=== PATIENT | female | born 1950 | race Caucasian/White ===

== ENCOUNTER → 2017-10-28 14:48 | Outpatient (CLI) | payer MEDICARE, BC, SELFPAY ==
--- NOTE | 2017-10-28 14:51 | US_ITS ---
STUDY: ULTRASOUND TRANSVAGINAL CLINICAL: Female, 67 years old. Follow-up of right adnexal cyst TECHNIQUE: Transabdominal and Transvaginal COMPARISON: None. FINDINGS: Status post hysterectomy Status post bilateral oophorectomy. There is a right adnexal cyst identified on the transvaginal exam measuring 1.3 x 1.2 x 1.9 cm. There is no free fluid in the pelvis. US/Pelvic (Non ) IMPRESSION: Status post hysterectomy and bilateral nephrectomy. Stable appearance of right adnexal cyst Electronically Signed: Chuck Mahoney DO at 9:13 EST Tel , Service support ,
--- NOTE | 2017-10-28 15:13 | US_ITS ---
STUDY: ULTRASOUND TRANSVAGINAL CLINICAL: Female, 67 years old. Follow-up of right adnexal cyst TECHNIQUE: Transabdominal and Transvaginal COMPARISON: None. FINDINGS: Status post hysterectomy Status post bilateral oophorectomy. There is a right adnexal cyst identified on the transvaginal exam measuring 1.3 x 1.2 x 1.9 cm. There is no free fluid in the pelvis. US/Transvaginal Non- IMPRESSION: Status post hysterectomy and bilateral nephrectomy. Stable appearance of right adnexal cyst Electronically Signed: Chuck Mahoney DO at 9:13 EST Tel , Service support ,
== END ==
PROVIDERS: Family Provider Family Medicine; PCP Family Medicine; Visit Provider Obstetrics & Gynecology
DX: N83.8 Other noninflammatory disorders of ovary, fallopian tube and broad ligament (principal)
CPT/HCPCS: 76830; 76856

== ENCOUNTER → 2017-11-09 14:27 | Outpatient (CLI) | payer MEDICARE, BC, SELFPAY ==
[2017-11-09 16:29] LABS: Estradiol < 11.0 pg/mL; Follicle Stimulating Hormone 80.2 mIU/mL
[2017-11-11 11:57] LABS: Cancer Antigen 125 8.3 U/mL (0.0-38.1); Carbohydrate AG 19-9 25 U/mL (0-35); Carcinoembryonic Antigen 2.1 ng/mL (0.0-4.7)
== END ==
PROVIDERS: Visit Provider Obstetrics & Gynecology
DX: N83.201 Unspecified ovarian cyst, right side (principal); R93.5 Abnormal findings on diagnostic imaging of other abdominal regions, including retroperitoneum
CPT/HCPCS: 36415; 82378; 82670; 83001; 86301; 86304

== ENCOUNTER → 2018-02-24 16:00 | Outpatient (CLI) | payer MEDICARE, BC, SELFPAY ==
--- NOTE | 2018-02-24 16:05 | BI_ITS ---
MAMMOGRAPHY - BILATERAL SCREENING REASON FOR EXAM: Female, 67 years old. Routine annual screening examination. PERTINENT HISTORY: History of prior bilateral breast reduction and right excisional breast biopsy. TECHNIQUE: Digital bilateral breast lupillo (3D mammographic acquisition) in the CC and MLO projections. 2-D mediolateral oblique (MLO) and craniocaudad (CC) views of both breasts were obtained. CAD: Full Field Digital Mammography with Computer Added Detection was performed. COMPARISON: Comparison is made with prior examination and February 05, 2017. FINDINGS: Breast Composition: The breasts are heterogeneously dense, which may obscure small masses. There are no dominant masses or suspicious calcifications. No other significant abnormalities are identified. There has been no significant change since the prior study. BI/SCREENING MAMM (CAD), BILAT IMPRESSION: Stable bilateral screening mammogram. Yearly follow-up mammogram recommended. (A) ASSESSMENT CATEGORY: BIRADS Category 1: Negative. A letter regarding these results will be sent to the patient by the facility within 30 days. Approximately 10% of breast cancers are not detected by mammography. A normal mammogram should not delay biopsy of a clinically suspicious abnormality. [id number] Electronically Signed: Jesse Quezada MD at 14:57 EDT Tel [phone], Service support ,
== END ==
PROVIDERS: Family Provider Family Medicine; PCP Family Medicine; Visit Provider Obstetrics & Gynecology
DX: Z12.31 Encounter for screening mammogram for malignant neoplasm of breast (principal)
CPT/HCPCS: 77063; 77067

== ENCOUNTER → 2018-03-10 15:34 | Outpatient (CLI) | payer MEDICARE, BC, SELFPAY ==
--- NOTE | 2018-03-10 15:35 | US_ITS ---
STUDY: ULTRASOUND OF THE FEMALE PELVIS - COMPLETE REASON FOR EXAM: Female, 67 years old. Right adnexal cyst LMP: TECHNIQUE: Transabdominal and Transvaginal TECHNICAL QUALITY: Adequate. COMPARISON: None. FINDINGS: The uterus uterus and the ovaries have been removed. There is no abnormal mass in the pelvis. There is no evidence of right adnexal cyst. There is no fluid in the cul-de-sac. The pre void volume of the bladder was 479.8 ml. US/Pelvic (Non ) IMPRESSION: Normal female pelvis. Electronically Signed: Yvonne Ríos MD at 8:04 EDT Tel , Service support ,
== END ==
PROVIDERS: Family Provider Family Medicine; PCP Family Medicine; Visit Provider Obstetrics & Gynecology
DX: N83.8 Other noninflammatory disorders of ovary, fallopian tube and broad ligament (principal); R10.30 Lower abdominal pain, unspecified
CPT/HCPCS: 76856

== ENCOUNTER → 2018-08-16 12:43 | Outpatient (CLI) | payer MEDICARE, BC, SELFPAY ==
--- NOTE | 2018-08-16 12:46 | US_ITS ---
STUDY: ULTRASOUND OF THE FEMALE PELVIS - COMPLETE REASON FOR EXAM: Female, 68 years old. Right adnexal cyst. LMP: Postmenopausal. TECHNIQUE: Transabdominal and Transvaginal TECHNICAL QUALITY: Adequate. COMPARISON: March 10, 2018 and October 28, 2017. FINDINGS: The uterus is surgically absent. The right ovary is visualized. The right ovary measures 1.5 x 1.8 x 1.2 cm. This contains a 1.1 x 1.0 x 1.0 cm cyst. There is no visualized right adnexal mass or complex lesion. There is normal arterial and normal venous vascularity. The left ovary is not visualized. There is no visualized left adnexal mass or complex lesion. There is no fluid in the cul-de-sac. The pre void volume of the bladder was 288 ml. The urinary bladder appears grossly unremarkable. Polycystic ovary disease: No. US/Pelvic (Non ) IMPRESSION: 1. Surgically absent uterus. 2. Soft tissue density with associated cyst in right adnexa. Question right ovary with cyst. This was not seen on the most recent ultrasound but appears essentially unchanged from October 28, 2017. 3. Nonvisualization left ovary. 4. No other sonographic evidence of pelvic abnormality. Electronically Signed: Missael Lopez DO at 22:14 EST Tel [phone], Service support ,
--- OUTSIDE RECORDS SUMMARY | 2018-10-09 19:21 | XMS RPT_ITS ---
:1950 Author Organization [facility] Care Team Providers Name Role Phone Katt Carrion Attending Unavailable Katt Carrion Referring Unavailable CHON PORTILLO Primary Care Unavailable Katt Carrion Attending Unavailable Katt Carrion Attending Unavailable CHON PORTILLO Primary Care Unavailable GRICELDA GRAFF Unavailable Katt Carrion Referring Unavailable Katt Carrion Attending Unavailable Katt Carrion Referring Unavailable CHON PORTILLO Primary Care Unavailable Katt Carrion Attending Unavailable Katt Carrion Referring Unavailable LINDSEY CHON Primary Care Unavailable PROBLEMS PROBLEMS DATE TYPE CONDITION / CODE ATTENDING STATUS SOURCE 08/16/2018 Unknown N83.8 - Other Katt Carrion Active [facility] noninflammatory Community disorders of ovary, Hospital fallopian tube and Repository broad ligament / N83.8(ICD-10) 03/10/2018 Unknown R10.30 - Lower Katt Carrion Active [facility] abdominal pain, Community unspecified / Hospital R10.30(ICD-10) Repository 02/24/2018 Unknown Z12.31 - Encounter Katt Carrionoster for screening Community mammogram for Hospital malignant neoplasm of Repository breast / Z12.31(ICD-10) 12/03/2017 Unknown N83.201 - Unspecified Katt Carrion Active [facility] ovarian cyst, right Community side / Hospital N83.201(ICD-10) Repository PROCEDURES PROCEDURES No Procedure Records FoundRESULTS RESULTS PELVIC (NON ) Observed: 08/16/2018 Status: F Source: MICHAEL 12:47 PM [facility] REPOSITORY [facility] [address] [place] [address] Pelvic (Non ) MR#: [id number] Acct: [id number] Name: JORDY FOLEY Rep #: [id number] : 1950 F 68 From: Missael Lopez DO PCP: Chon Portillo MD Status: REG CLI Study: Pelvic (Non ) Date of Exam: 08/16/18 Exam# [id number] Ordering Dr: Katt Carrion MD STUDY: ULTRASOUND OF THE FEMALE PELVIS - COMPLETE REASON FOR EXAM: Female, 68 years old. Right adnexal cyst. LMP: Postmenopausal. TECHNIQUE: Transabdominal and Transvaginal TECHNICAL QUALITY: Adequate. COMPARISON: March 10, 2018 and October 28, 2017. FINDINGS: The uterus is surgically absent. The right ovary is visualized. The right ovary measures 1.5 x 1.8 x 1.2 cm. This contains a 1.1 x 1.0 x 1.0 cm cyst. There is no visualized right adnexal mass or complex lesion. There is normal arterial and normal venous vascularity. The left ovary is not visualized. There is no visualized left adnexal mass or complex lesion. There is no fluid in the cul-de-sac. The pre void volume of the bladder was 288 ml. The urinary bladder appears grossly unremarkable. Polycystic ovary disease: No. US/Pelvic (Non ) IMPRESSION: 1. Surgically absent uterus. 2. Soft tissue density with associated cyst in right adnexa. Question right ovary with cyst. This was not seen on the most recent ultrasound but appears essentially unchanged from October 28, 2017. 3. Nonvisualization left ovary. 4. No other sonographic evidence of pelvic abnormality. Electronically Signed: Missael Lopez DO at 22:14 EST Tel [phone], Service support , CC: Katt Carrion MD; Chon Portillo MD Laborer Drying Department: Signed PELVIC (NON ) Observed: 03/10/2018 Status: F Source: MICHAEL 3:36 PM [facility] REPOSITORY [facility] [address] [place] [address] Pelvic (Non ) MR#: [id number] Acct: [id number] Name: JORDY FOLEY Rep #: [id number] : 1950 F 67 From: Yvonne Ríos MD PCP: Chon Portillo MD Status: REG CLI Study: Pelvic (Non ) Date of Exam: 03/10/18 Exam# [id number] Ordering Dr: Katt Carrion MD STUDY: ULTRASOUND OF THE FEMALE PELVIS - COMPLETE REASON FOR EXAM: Female, 67 years old. Right adnexal cyst LMP: TECHNIQUE: Transabdominal and Transvaginal TECHNICAL QUALITY: Adequate. COMPARISON: None. FINDINGS: The uterus uterus and the ovaries have been removed. There is no abnormal mass in the pelvis. There is no evidence of right adnexal cyst. There is no fluid in the cul-de-sac. The pre void volume of the bladder was 479.8 ml. US/Pelvic (Non ) IMPRESSION: Normal female pelvis. Electronically Signed: Yvonne Ríos MD at 8:04 EDT Tel , Service support , CC: Katt Carrion MD; Chon Portillo MD Laborer Drying Department: Signed SCREENING MAMM (CAD), Observed: 02/24/2018 Status: F Source: MICHAEL BILKAR 4:05 PM [facility] REPOSITORY [facility] [address] [place] [address] SCREENING MAMM (CAD), BILAT MR#: [id number] Acct: [id number] Name: JORDY FOLEY Rep #: [id number] : 1950 F 67 From: Jesse Quezada MD PCP: Chon Portillo MD Status: REG CLI Study: SCREENING MAMM (CAD), BILAT Date of Exam: 02/24/18 Exam# [id number] Ordering Dr: Katt Carrion MD MAMMOGRAPHY - BILATERAL SCREENING REASON FOR EXAM: Female, 67 years old. Routine annual screening examination. PERTINENT HISTORY: History of prior bilateral breast reduction and right excisional breast biopsy. TECHNIQUE: Digital bilateral breast lupillo (3D mammographic acquisition) in the CC and MLO projections. 2-D mediolateral oblique (MLO) and craniocaudad (CC) views of both breasts were obtained. CAD: Full Field Digital Mammography with Computer Added Detection was performed. COMPARISON: Comparison is made with prior examination and February 05, 2017. FINDINGS: Breast Composition: The breasts are heterogeneously dense, which may obscure small masses. There are no dominant masses or suspicious calcifications. No other significant abnormalities are identified. There has been no significant change since the prior study. BI/SCREENING MAMM (CAD), BILAT IMPRESSION: Stable bilateral screening mammogram. Yearly follow-up mammogram recommended. (A) ASSESSMENT CATEGORY: BIRADS Category 1: Negative. A letter regarding these results will be sent to the patient by the facility within 30 days. Approximately 10% of breast cancers are not detected by mammography. A normal mammogram should not delay biopsy of a clinically suspicious abnormality. [id number] Electronically Signed: Jesse Quezada MD at 14:57 EDT Tel [phone], Service support , CC: Katt Carrion MD; Chon Portillo MD Laborer Drying Department: Signed FOLLICLE STIMULATING Collected: 11/09/2017 Status: F Source: MICHAEL HORMONE 2:31 PM [facility] REPOSITORY TYPE CODE TESTS RESULT OUT OF RANGE REFERENCE UNITS LAB L3100.5125 mIU/mL Normal FSH 80.2 Result Comment: NORMAL REFERENCE RANGES FEMALE FOLLICULAR 2.3 - 12.6 mIU/mL MID-CYCLE PEAK 5.2 - 17.5 mIU/mL LUTEAL 1.7 - 12.9 mIU/mL POST-MENOPAUSAL ON MHT 5.9 - 72.8 mIU/mL NOT ON MHT 12.7 - 132.2 mlU/mL MALE 0.7 - 10.8 mIU/mL NEW TEST METHOD AND REFERENCE RANGES FEBRUARY 02, 2012 Performed By: #### L3100.5125, L3300.1750 #### [facility] [address] [place], [address] ESTRADIOL Collected: 11/09/2017 Status: F Source: MICHAEL 2:31 PM [facility] REPOSITORY TYPE CODE TESTS RESULT OUT OF RANGE REFERENCE UNITS LAB L3300.1750 pg/mL Normal ESTRADIOL < 11.0 Result Comment: NORMAL REFERENCE RANGES FEMALE FOLLICULAR 21.4 - 164.8 pg/mL MID-CYCLE PEAK 49.9 - 367.2 pg/mL LUTEAL 40.2 - 259.0 pg/mL POST-MENOPAUSAL ON MHT <11.0 - 462.1 pg/mL NOT ON MHT <11.0 - 58.3 pg/mL MALE <11.0 - 52.5 pg/mL NOTE: [facility] HAS CONFIRMED THE DRUG FULVETRANT (FASLODEX) MAY CAUSE FALSELY ELEVATED ESTRADIOL RESULTS WHEN USING THIS TEST METHOD. IF PATIENT IS TAKING FULVESTRANT AN ALTERNATIVE METHOD SHOULD BE USED TO DETERMINE ESTRADIOL CONCENTRATION. Performed By: #### L3100.5125, L3300.1750 #### [facility] [address] [place], [address] CARCINOEMBRYONIC ANTIGEN Collected: 11/09/2017 Status: F Source: MICHAEL 2:31 PM [facility] REPOSITORY TYPE CODE TESTS RESULT OUT OF RANGE REFERENCE UNITS LAB L3100.2300 0.0-4.7 ng/mL Normal CEA 2.1 Result Comment: Won ECLIA methodology Nonsmokers <3.9 Smokers <5.6 Performed By: #### L3100.2300, L3100.5000, L3100.5020 #### [facility] (refer to report for specific site) refer to report for address and phone number CANCER ANTIGEN 125 Collected: 11/09/2017 Status: F Source: MICHAEL 2:31 PM [facility] REPOSITORY TYPE CODE TESTS RESULT OUT OF RANGE REFERENCE UNITS LAB L3100.5000 0.0-38.1 U/mL Normal CA125 8.3 2303 Result Comment: Won ECLIA methodology Performed at: [address] [id number] Mortgage Closing Clerk: Arnold Vines PhD, Phone: [phone] Performed By: #### L3100.2300, L3100.5000, L3100.5020 #### [facility] (refer to report for specific site) refer to report for address and phone number CARBOHYDRATE AG 19-9 Collected: 11/09/2017 Status: F Source: MICHAEL 2:31 PM [facility] REPOSITORY TYPE CODE TESTS RESULT OUT OF RANGE REFERENCE UNITS LAB L3100.5020 0-35 U/mL Normal CA 19-9 25 2261 Result Comment: Won ECLIA methodology Performed By: #### L3100.2300, L3100.5000, L3100.5020 #### [facility] (refer to report for specific site) refer to report for address and phone number MISCELLANEOUS LAB Collected: 11/09/2017 Status: F Source: MICHAEL PROCEDURE 2:31 PM [facility] REPOSITORY Order Comment: Comments: #[id number] INHIBIN A SERUM FZ;#[id number] INHIBIN B SERUM RF Test(s) Ordered: #[id number] INHIBIN A SERUM FZ TYPE CODE TESTS RESULT OUT OF RANGE REFERENCE UNITS LAB L801.1541 Normal [facility] TEST Result Comment: TEST RESULT LIMITS Inhibin A, Ultrasensitive < 0.3 pg/mL Menstrual Phase Early Follicular <34.0 Late Follicular <99.0 Periovulatory 8.0-233.0 MidLuteal <145.0 End Luteal <145.0 Postmenopausal <4.0 [facility] ORIGINAL REPORT ON FILE IN LAB CONTAINS ADDITIONAL TEST SITE INFORMATION. Performed By: #### L801.1541 #### [facility] [address] [place], [address] MISCELLANEOUS LAB Collected: 11/09/2017 Status: F Source: MICHAEL PROCEDURE 2 2:31 PM [facility] REPOSITORY Order Comment: Comments: #[id number] INHIBIN A SERUM FZ;#[id number] INHIBIN B SERUM RF List Test(s) Ordered by Physician: #[id number] INHIBIN B SERUM RF TYPE CODE TESTS RESULT OUT OF RANGE REFERENCE UNITS LAB L801.1543 Normal [facility] TEST 2 Result Comment: TEST RESULT LIMITS Inhibin B <7.0 pg/mL 0.0 - 16.9 Results for this test are for research purposes only by the assay's fishing boat mate. The performance characteristics of this product have not been established. Results should not be used as a diagnostic procedure without confirmation of the diagnosis by another medically established diagnostic product or procedure. [facility] ORIGINAL REPORT ON FILE IN LAB CONTAINS ADDITIONAL TEST SITE INFORMATION. Performed By: #### L801.1543 #### [facility] [address] [place], [address] TRANSVAGINAL Observed: 10/28/2017 Status: F Source: MICHAEL NON- 3:13 PM [facility] REPOSITORY [facility] [address] [address] Transvaginal Non- MR#: [id number] Acct: [id number] Name: JORDY FOLEY Rep #: [id number] : 1950 F 67 From: Chuck Mahoney DO PCP: CHON PORTILLO Status: REG CLI Study: Transvaginal Non- Date of Exam: 10/28/17 Exam# [id number] Ordering Dr: Katt Carrion MD ADDENDUM by Chuck Mahoney D.O. on 11/10/17 at 1511 US/Transvaginal Non- IMPRESSION: Status post hysterectomy and bilateral oophorectomy. Stable appearance of right adnexal cyst Electronically Signed: Chuck Mahoney DO at 15:11 EST Tel , Service support , 11/10/171517 Date cc: Katt Carrion MD; CHON PORTILLO * Signed ADDENDUM by Chuck Mahoney D.O. on 11/10/17 at 1511 ADDENDUM Please note that there was a dictation error Impression should read as follows 02/27/18 1511 Date cc: Katt Carrion MD; CHON PORTILLO * Signed STUDY: ULTRASOUND TRANSVAGINAL CLINICAL: Female, 67 years old. Follow-up of right adnexal cyst TECHNIQUE: Transabdominal and Transvaginal COMPARISON: None. FINDINGS: Status post hysterectomy Status post bilateral oophorectomy. There is a right adnexal cyst identified on the transvaginal exam measuring 1.3 x 1.2 x 1.9 cm. There is no free fluid in the pelvis. US/Transvaginal Non- IMPRESSION: Status post hysterectomy and bilateral nephrectomy. Stable appearance of right adnexal cyst Electronically Signed: Chuck Mahoney DO at 9:13 EST Tel , Service support , CC: Katt Carrion MD; CHON PORTILLO Laborer Drying Department: Signed PELVIC (NON ) Observed: 10/28/2017 Status: F Source: [place] 2:51 PM [facility] REPOSITORY [facility] [address] [place] [address] Pelvic (Non ) MR#: [id number] Acct: [id number] Name: JORDY FOLEY Nav Rep #: [id number] : 1950 F 67 From: Chuck Mahoney DO PCP: CHON PORTILLO Status: REG CLI Study: Pelvic (Non ) Date of Exam: 10/28/17 Exam# [id number] Ordering Dr: Katt Carrion MD ADDENDUM by Chuck Mahoney D.O. on 11/10/17 at 1511 US/Pelvic (Non ) IMPRESSION: Status post hysterectomy and bilateral oophorectomy. Stable appearance of right adnexal cyst Electronically Signed: Chuck Mahoney DO at 15:11 EST Tel , Service support , 11/10/171517 Date cc: Katt Carrion MD; CHON PORTILLO * Signed ADDENDUM by Chuck Mahoney D.O. on 11/10/17 at 1511 ADDENDUM Please note that there was a dictation error Impression should read as follows 11/10/171510 Date cc: Katt Carrion MD; CHON PORTILLO * Signed STUDY: ULTRASOUND TRANSVAGINAL CLINICAL: Female, 67 years old. Follow-up of right adnexal cyst TECHNIQUE: Transabdominal and Transvaginal COMPARISON: None. FINDINGS: Status post hysterectomy Status post bilateral oophorectomy. There is a right adnexal cyst identified on the transvaginal exam measuring 1.3 x 1.2 x 1.9 cm. There is no free fluid in the pelvis. US/Pelvic (Non ) IMPRESSION: Status post hysterectomy and bilateral nephrectomy. Stable appearance of right adnexal cyst Electronically Signed: Chuck Mahoney DO at 9:13 EST Tel , Service support , CC: Katt Carrion MD; CHON PORTILLO Laborer Drying Department: Signed ALLERGIES ALLERGIES No Allergies Records FoundENCOUNTERS ENCOUNTERS ADMIT/DISCHARGE ACCOUNT ADMITTING ENCOUNTER LOCATION SOURCE NUMBER CLASS 08/16/2018 [id number] Ambulatory [place] 0 [facility] ing:OPUS Repository 03/10/2018 [id number] Ambulatory [place] Michael 9 [facility] ing:US Repository 02/24/2018 [id number] Ambulatory [place] 8 [facility] ing:OPBI Repository 11/09/2017 [id number] Ambulatory [place] 8 [facility] ing:WOBLAB Repository 10/28/2017 [id number] Ambulatory [place] 5 [facility] ing:USHP Repository PAYERS PAYERS ENCOUNTER GUARANTOR PAYER SUBSCRIBER SOURCE 08/16/2018 BERNABE Chopra Primary JORDY L [place] [id number] Insurance:MEDICARE KANDLEDOB: [facility] PART A [facility] [id number] Hospital [address], Number: Repository [place] [address]Grp: [id number] Date:2018-08-12 () 08/16/2018 Secondary JORDY L Michael Insurance:ANTHEMPolic KANDLEDOB: Community y Number: [id number] Hospital [id number] Repository Date:[id number] [address] [place] [address]KX: 08/16/2018 Tertiary NOT GIVENUNK [place] Insurance:SELF PAY [facility] Number: Effective Repository Date:2018-08-12 03/10/2018 Bernabe L Primary JORDY L [place] [id number] Insurance:MEDICARE KANDLEDOB: [facility] PART A [facility] [id number] Hospital [address], Number: Repository [place] [address]Beq: [id number] Date:2018-03-03 (HP) 03/10/2018 Secondary JORDY L [place] Insurance:ANTHEMPolic KANDLEDOB: Community y Number: [id number] Hospital [id number] Repository Date:[id number] [address] [place] [address]GL: 03/10/2018 Tertiary NOT GIVENUNK Michael Insurance:SELF PAY [facility] Number: Effective Repository Date:2018-03-03 02/24/2018 Bernabe L Primary JORDY L [place] [id number] Insurance:MEDICARE KANDLEDOB: [facility] A [facility] [id number] Hospital [address], Number: Repository [place] [address]Zum: [id number] Date:2018-02-03 () 02/24/2018 Secondary JORDY L Michael Insurance:ANTHEMPolic KANDLEDOB: Community y Number: [id number] Hospital [id number] Repository Date:2289-98-69IA [address] [place] [address]UG: 02/24/2018 Tertiary NOT GIVENUNK [place] Insurance:SELF PAY [facility] Number: Effective Repository Date:2018-02-03 11/09/2017 Bernabe L Primary JORDY L [place] [id number] Insurance:MEDICARE KANDLEDOB: [facility] A [facility] [id number] Hospital [address], Number: Repository [place] [address]Mfy: [id number] Date:2017-11-09 () 11/09/2017 Secondary JORDY L [place] Insurance:ANTHEMPolic KANDLEDOB: Community y Number: [id number] Hospital [id number] Repository Date:4956-84-06YG [address] [place] [address]LZ: 11/09/2017 Tertiary NOT GIVENUNK [place] Insurance:SELF PAY [facility] Number: Effective Repository Date:2017-11-09 10/28/2017 Bernabe L Primary JORDY L Michael [id number] Insurance:MEDICARE KANDLEDOB: [facility] [id number] Hospital [address], Number: Repository [place] [address]Wny: [id number] Date:2017-10-16 (HP) 10/28/2017 Secondary JORDY Chopra [place] [facility] y Number: [id number] Hospital [id number] Repository Date:[id number], [place] [address]NP: 10/28/2017 Tertiary NOT GIVENUNK [place] Insurance:SELF PAY [facility] Number: Effective Repository Date:2017-10-16
== END ==
PROVIDERS: Family Provider Family Medicine; PCP Family Medicine; Referring Provider Obstetrics & Gynecology; Visit Provider Obstetrics & Gynecology
DX: N83.8 Other noninflammatory disorders of ovary, fallopian tube and broad ligament (principal)
CPT/HCPCS: 76856

== ENCOUNTER → 2018-09-29 18:11 | Outpatient (CLI) | payer MEDICARE, BC, SELFPAY ==
--- OUTSIDE RECORDS SUMMARY | 2018-12-04 17:03 | XMS RPT_ITS ---
:1950 Author Organization OHIP Care Team Providers Name Role Phone Katt Carrion Attending Unavailable LINDSEY CHON Primary Care Unavailable Katt Carrion Referring Unavailable Katt Carrion Attending Unavailable Katt Carrion Referring Unavailable LINDSEY, CHON Primary Care Unavailable Katt Carrion Attending Unavailable Katt Carrion Attending Unavailable LINDSEY CHON Primary Care Unavailable GRICELDA GRAFF Consulting Unavailable Katt Carrion Referring Unavailable Katt Carrion Attending Unavailable Katt Carrion Referring Unavailable PORTILLO, CHON Primary Care Unavailable Katt Carrion Attending Unavailable Katt Carrion Referring Unavailable PORTILLO, CHON Primary Care Unavailable PROBLEMS PROBLEMS DATE TYPE CONDITION / CODE ATTENDING STATUS SOURCE 09/30/2018 Unknown N39.0 - Urinary tract Katt Carrion Active [place] infection, site not Community specified / Hospital N39.0(ICD-10) Repository 08/16/2018 Unknown N83.8 - Other Katt Carrion noninflammatory [facility] disorders of ovary, Hospital fallopian tube and Repository broad ligament / N83.8(ICD-10) 03/10/2018 Unknown R10.30 - Lower Katt Carrion abdominal pain, Community unspecified / Hospital R10.30(ICD-10) Repository 02/24/2018 Unknown Z12.31 - Encounter Katt Carrion for screening [facility] mammogram for Hospital malignant neoplasm of Repository breast / Z12.31(ICD-10) 12/03/2017 Unknown N83.201 - Unspecified Katt Carrion ovarian cyst, right Community side / Hospital N83.201(ICD-10) Repository PROCEDURES PROCEDURES No Procedure Records FoundRESULTS RESULTS Observed: 09/29/2018 Status: F Source: [place] CULTURE, URINE 5:00 PM [facility] Urine Culture ORGANISM 1: Mixed Gram Positive Organisms [place] Count 50,000-80,000 MIX CULTURE Mixed contaminants. Submit a new specimen if indicated. Performed By: #### M100.0650 #### [facility] [address] [place], [address] PELVIC (NON ) Observed: 08/16/2018 Status: F Source: [place] 12:47 PM [facility] Imaging Services [address] [place] [address] Pelvic (Non ) MR#: [id number] Acct: [id number] Name: JORDY FOLEY Rep #: [id number] : 1950 F 68 From: Missael Lopez DO PCP: Chon Portillo MD Status: REG CLI Study: Pelvic (Non ) Date of Exam: 08/16/18 Exam# [id number] Ordering Dr: Katt Carrion MD STUDY: ULTRASOUND [...] Missael Lopez DO at 22:14 EST Tel [phone], Service support , CC: Katt Carrion MD; Chon Portillo MD Repair Department Supervisor: Signed PELVIC (NON ) Observed: 03/10/2018 Status: F Source: [place] 3:36 PM [facility] Imaging Services [address] [place] [address] Pelvic (Non ) MR#: [id number] Acct: [id number] Name: JORDY FOLEY Rep #: [id number] : 1950 F 67 From: Yvonne Ríos MD PCP: Chon Portillo MD Status: REG CLI Study: Pelvic (Non ) Date of Exam: 03/10/18 Exam# [id number] Ordering Dr: Katt Carrion MD STUDY: ULTRASOUND [...] CC: Katt Carrion MD; Chon Portillo MD Repair Department Supervisor: Signed SCREENING MAMM (CAD), Observed: 02/24/2018 Status: F Source: [place] BIL 4:05 PM [facility] Imaging Services [address] [place] [address] SCREENING MAMM (CAD), BILAT MR#: [id number] Acct: [id number] Name: JORDY FOLEY Rep #: [id number] : 1950 F 67 From: Jesse Quezada MD PCP: Chon Portillo MD Status: [facility] Study: SCREENING MAMM (CAD), BILAT Date of Exam: 02/24/18 Exam# [id number] Ordering Dr: Katt Carrion MD MAMMOGRAPHY - [...] delay biopsy of a clinically suspicious abnormality. [id number] Electronically Signed: Jesse Quezada MD at 14:57 EDT Tel [phone], Service support , CC: Katt Carrion MD; Chon Portillo MD Repair Department Supervisor: Signed FOLLICLE STIMULATING Collected: 11/09/2017 Status: F Source: [place] 2:31 PM [facility] TYPE CODE TESTS RESULT OUT OF [...] 2012 Performed By: #### L3100.5125, L3300.1750 #### [facility] [address] [place], [address] ESTRADIOL Collected: 11/09/2017 Status: F Source: [place] 2:31 PM [facility] TYPE CODE TESTS RESULT OUT OF [...] CONCENTRATION. Performed By: #### L3100.5125, L3300.1750 #### [facility] [address] [place], [address] CARCINOEMBRYONIC ANTIGEN Collected: 11/09/2017 Status: F Source: [place] 2:31 PM [facility] TYPE CODE TESTS RESULT OUT OF RANGE REFERENCE UNITS LAB L3100.2300 0.0-4.7 ng/mL Normal CEA 2.1 Result Comment: Won ECLIA methodology Nonsmokers <3.9 Smokers <5.6 Performed By: #### L3100.2300, L3100.5000, L3100.5020 #### [facility] (refer to report for specific site) refer to report for address and phone number CANCER ANTIGEN 125 Collected: 11/09/2017 Status: F Source: [place] 2:31 PM [facility] TYPE CODE TESTS RESULT OUT OF RANGE REFERENCE UNITS LAB L3100.5000 0.0-38.1 U/mL Normal CA125 8.3 2303 Result Comment: Won ECLIA methodology Performed at: [facility] [id number] Plastic Boat Patcher: Arnold Vines PhD, Phone: [phone] Performed By: #### L3100.2300, L3100.5000, L3100.5020 #### [facility] (refer to report for specific site) refer to report for address and phone number CARBOHYDRATE AG 19-9 Collected: 11/09/2017 Status: F Source: [place] 2:31 PM [facility] TYPE CODE TESTS RESULT OUT OF RANGE REFERENCE UNITS LAB L3100.5020 0-35 U/mL Normal CA 19-9 25 2261 Result Comment: Won ECLIA methodology Performed By: #### L3100.2300, L3100.5000, L3100.5020 #### [facility] (refer to report for specific site) refer to report for address and phone number MISCELLANEOUS LAB Collected: 11/09/2017 Status: F Source: [place] PROCEDURE 2:31 PM [facility] Order Comment: Comments: #[id number] INHIBIN A SERUM FZ;#[id number] INHIBIN B SERUM RF Test(s) Ordered: #[id number] INHIBIN A SERUM FZ TYPE CODE TESTS RESULT OUT OF RANGE REFERENCE UNITS LAB L801.1541 Normal [facility] LAB TEST Result Comment: TEST RESULT LIMITS Inhibin A, Ultrasensitive < 0.3 pg/mL Menstrual Phase Early Follicular <34.0 Late Follicular <99.0 Periovulatory 8.0-233.0 MidLuteal <145.0 End Luteal <145.0 Postmenopausal <4.0 TESTING PERFORMED AT [facility]. ORIGINAL REPORT ON FILE IN LAB CONTAINS ADDITIONAL TEST SITE INFORMATION. Performed By: #### L801.1541 #### [facility] [address] [place], [place], [id number] MISCELLANEOUS LAB Collected: 11/09/2017 Status: F Source: [place] PROCEDURE 2 2:31 PM [facility] Order Comment: Comments: #[id number] INHIBIN A SERUM FZ;#[id number] INHIBIN B SERUM RF List Test(s) Ordered by Physician: #[id number] INHIBIN B SERUM RF TYPE CODE TESTS RESULT OUT OF RANGE REFERENCE UNITS LAB L801.1543 Normal MISC LAB TEST 2 Result Comment: TEST RESULT LIMITS Inhibin B <7.0 pg/mL 0.0 - 16.9 Results for this test are for research purposes only by the assay's business support. The performance characteristics of this product have not been established. Results should not be used as a diagnostic procedure without confirmation of the diagnosis by another medically established diagnostic product or procedure. TESTING PERFORMED AT [facility]. ORIGINAL REPORT ON FILE IN LAB CONTAINS ADDITIONAL TEST SITE INFORMATION. Performed By: #### L801.1543 #### [facility] [address] [place], [address] TRANSVAGINAL Observed: 10/28/2017 Status: F Source: [place] NON- 3:13 PM [facility] Imaging Services [address] [place] [address] Transvaginal Non- MR#: [id number] Acct: [id number] Name: JORDY FOLEY Nav Rep #: [id number] : 1950 F 67 From: Chuck Mahoney DO PCP: CHON PORTILLO Status: REG CLI Study: Transvaginal Non- Date of Exam: 10/28/17 Exam# [id number] Ordering Dr: Katt Carrion MD ADDENDUM by [...] , CC: Katt Carrion MD; CHON PORTILLO Repair Department Supervisor: Signed PELVIC (NON ) Observed: 10/28/2017 Status: F Source: [place] 2:51 PM [facility] Imaging Services [address] [place] [address] Pelvic (Non ) MR#: [id number] Acct: [id number] Name: JORDY FOLEY Rep #: [id number] : 1950 F 67 From: Chuck Mahoney DO PCP: CHON PORTILLO Status: REG CLI Study: Pelvic (Non ) Date of Exam: 10/28/17 Exam# [id number] Ordering Dr: Katt Carrion MD ADDENDUM by [...] , CC: Katt Carrion MD; CHON PORTILLO Repair Department Supervisor: Signed ALLERGIES ALLERGIES No Allergies Records FoundENCOUNTERS ENCOUNTERS ADMIT/DISCHARGE ACCOUNT ADMITTING ENCOUNTER LOCATION SOURCE NUMBER CLASS 09/29/2018 [id number] Ambulatory [place] 4 [facility] ing:LABSPEC Repository 08/16/2018 [id number] Ambulatory [place] 0 [facility] ing:OPUS Repository 03/10/2018 [id number] Ambulatory [place] 9 [facility] ing:US Repository 02/24/2018 [id number] Ambulatory [place] 8 [facility] ing:OPBI Repository 11/09/2017 [id number] Ambulatory [place] 8 [facility] ing:WOBLAB Repository 10/28/2017 [id number] Ambulatory [place] 5 [facility] ing:USHP Repository PAYERS PAYERS ENCOUNTER GUARANTOR PAYER SUBSCRIBER SOURCE 09/29/2018 BERNABE Chopra Primary JORDY L Michael [id number] Insurance:MEDICARE KANDLEDOB: [facility] PART A [facility] [id number] Hospital [address], Number: Repository [place] [address]Sst: [id number] Date:2018-09-29 () 09/29/2018 Secondary JORDY L [place] Insurance:ANTHEMPolic KANDLEDOB: [facility] Number: [id number] Hospital [id number] Repository Date:3652-00-50HF [address] [place] [address]GT: 09/29/2018 Tertiary NOT GIVENUNK [place] Insurance:SELF PAY [facility] Number: Effective Repository Date:2018-09-29 08/16/2018 BERNABE L Primary JORDY L [place] [id number] Insurance:MEDICARE KANDLEDOB: [facility] DR[facility] PART A [facility] [id number] Hospital [address], Number: Repository [place] [address]Wsr: [id number] Date:2018-08-12 () 08/16/2018 Secondary JORDY L [place] Insurance:ANTHEMPolic KANDLEDOB: Community y Number: [id number] Hospital [id number] Repository Date:3021-61-50FX [address] [place] [address]WX: 08/16/2018 Tertiary NOT GIVENUNK [place] Insurance:SELF PAY [facility] Number: Effective Repository Date:2018-08-12 03/10/2018 Bernabe L Primary JORDY L [place] [id number] Insurance:MEDICARE KANDLEDOB: [facility] DRPO PART A [facility] [id number] Hospital [address], Number: Repository [place] [address]Woe: [id number] Date:2018-03-03 () 03/10/2018 Secondary JORDY L [place] Insurance:ANTHEMPolic KANDLEDOB: Community y Number: [id number] Hospital [id number] Repository Date:6570-01-73MW [address] [place] [address]SB: 03/10/2018 Tertiary NOT GIVENUNK [place] Insurance:SELF PAY [facility] Number: Effective Repository Date:2018-03-03 02/24/2018 Bernabe L Primary JORDY L [place] [id number] Insurance:MEDICARE [facility]OB[facility] [id number] Hospital [address], Number: Repository [place] [address]Nix: [id number] Date:2018-02-03 () 02/24/2018 Secondary JORDY L [place] Insurance:ANTHEMPolic KANDLEDOB: Community y Number: [id number] Hospital [id number] Repository Date:2800-40-27UQ [address] [place] [address] 418[address]YN: 02/24/2018 Tertiary NOT GIVENUNK [place] Insurance:SELF PAY [facility] Number: Effective Repository Date:2018-02-03 11/09/2017 Bernabe L Primary JORDY L Michael [id number] Insurance:MEDICARE KANDLEDOB: [facility] DrPo PART A [facility] [id number] Hospital [address], Number: Repository [place] [address]Qrt: [id number] Date:2017-11-09 () 11/09/2017 Secondary JORDY L [place] Insurance:ANTHEMPolic KANDLEDOB: Community y Number: [id number] Hospital [id number] Repository Date:2538-81-87DO [address] [place] [address]TB: 11/09/2017 Tertiary NOT GIVENUNK [place] Insurance:SELF PAY [facility] Number: Effective Repository Date:2017-11-09 10/28/2017 Bernabe L Primary JORDY L [place] [id number] Insurance:MEDICARE KANDLEDOB: [facility] DrPo PART A [facility] [id number] Hospital [address], Number: Repository [place] [address]Gpa: [id number] Date:2017-10-16 () 10/28/2017 Secondary JORDY L [place] Insurance:ANTHEMPolic KANDLEDOB: Community y Number: [id number] Hospital [id number] Repository Date:1087-45-26[id number] [place] [address]AC: 10/28/2017 Tertiary NOT GIVENUNK [place] Insurance:SELF PAY [facility]: Effective Repository Date:2017-10-16
== END ==
PROVIDERS: Family Provider Family Medicine; PCP Family Medicine; Referring Provider Obstetrics & Gynecology; Visit Provider Obstetrics & Gynecology
DX: N39.0 Urinary tract infection, site not specified (principal)
CPT/HCPCS: 87086; 87088

== ENCOUNTER → 2018-10-27 17:00 | Outpatient (CLI) | payer MEDICARE, BC, SELFPAY | PROVIDERS: Visit Provider Obstetrics & Gynecology | DX: R10.9 Unspecified abdominal pain (principal) | CPT/HCPCS: 87086; 87088 ==

== ENCOUNTER → 2019-04-07 15:06 | Outpatient (CLI) | payer MEDICARE, BC, SELFPAY ==
--- NOTE | 2019-04-07 15:08 | US_ITS ---
STUDY: ULTRASOUND OF THE FEMALE PELVIS - COMPLETE REASON FOR EXAM: Female, 68 years old. Cyst TECHNIQUE: Transvaginal ultrasound of the pelvis was obtained TECHNICAL QUALITY: Adequate. COMPARISON: Pelvic ultrasound August 16, 2018 FINDINGS: The uterus has been removed. The right ovary is not definitively identified. The left ovary is not seen. There is no fluid in the cul-de-sac. US/Transvaginal Non- IMPRESSION: Limited evaluation without pelvic pathology identified. Status post hysterectomy. Electronically Signed: Tyler Kelly, at 16:07 EDT Tel , Service support ,
== END ==
PROVIDERS: Family Provider Family Medicine; PCP Family Medicine; Referring Provider Obstetrics & Gynecology; Visit Provider Obstetrics & Gynecology
DX: N83.8 Other noninflammatory disorders of ovary, fallopian tube and broad ligament (principal)
CPT/HCPCS: 76830

== ENCOUNTER → 2019-07-01 13:50 | Outpatient (CLI) | payer MEDICARE, BC, SELFPAY ==
--- NOTE | 2019-07-01 13:53 | BI_ITS ---
MAMMOGRAPHY - BILATERAL SCREENING REASON FOR EXAM: Female, 69 years old. Routine annual screening examination. PERTINENT HISTORY: Non-contributory. Bilateral breast reduction surgery. Prior bilateral excisional breast biopsies. TECHNIQUE: Digital bilateral breast kj (3D mammographic acquisition) in the CC and MLO projections. 2-D mediolateral oblique (MLO) and craniocaudad (CC) views of both breasts were obtained. CAD: Full Field Digital Mammography with Computer Added Detection was performed. COMPARISON: Comparison is made with prior study dated February 24, 2018 and July 05, 2014. FINDINGS: Breast Composition: The breasts are heterogeneously dense, which may obscure small masses. There are no dominant masses or suspicious calcifications. No other significant abnormalities are identified. There has been no significant change since the prior study. BI/SCREEN MAMM (CAD) W/KJ BILAT IMPRESSION: Stable bilateral screening mammogram. Yearly follow-up mammogram recommended. (A) ASSESSMENT CATEGORY: BIRADS Category 1: Negative. A letter regarding these results will be sent to the patient by the facility within 30 days. Approximately 10% of breast cancers are not detected by mammography. A normal mammogram should not delay biopsy of a clinically suspicious abnormality. [id number] Electronically Signed: Jesse Quezada, at 14:54 EDT , Service support ,
== END ==
PROVIDERS: Family Provider Family Medicine; PCP Family Medicine; Referring Provider Obstetrics & Gynecology; Visit Provider Obstetrics & Gynecology
DX: Z12.31 Encounter for screening mammogram for malignant neoplasm of breast (principal)
CPT/HCPCS: 77063; 77067

== ENCOUNTER → 2020-07-19 15:34 | Outpatient (CLI) | payer MEDICARE, BC, SELFPAY ==
--- NOTE | 2020-07-19 15:36 | BI_ITS ---
MAMMOGRAPHY - BILATERAL SCREENING REASON FOR EXAM: Female, 70 years old. Routine annual screening examination. PERTINENT HISTORY: Non-contributory. TECHNIQUE: Digital bilateral breast kj (3D mammographic acquisition) in the CC and MLO projections. 2-D mediolateral oblique (MLO) and craniocaudad (CC) views of both breasts were obtained. CAD: Full Field Digital Mammography with Computer Added Detection was performed. COMPARISON: Comparison is made with prior study dated 07/01/2019 and 02/24/2018. FINDINGS: Breast Composition: The breasts are heterogeneously dense, which may obscure small masses. There are no dominant masses or suspicious calcifications. No other significant abnormalities are identified. There has been no significant change since the prior study. BI/SCREEN MAMM (CAD) W/KJ BILAT IMPRESSION: Stable bilateral screening mammogram. Yearly follow-up mammogram recommended. (A) ASSESSMENT CATEGORY: BIRADS Category 1: Negative. A letter regarding these results will be sent to the patient by the facility within 30 days. Approximately 10% of breast cancers are not detected by mammography. A normal mammogram should not delay biopsy of a clinically suspicious abnormality. [id number] Electronically Signed: Jesse Quezada, at 8:00 EST , Service support ,
== END ==
PROVIDERS: PCP Family Medicine; Referring Provider Student in an Organized Health Care Education/Training Program; Visit Provider Student in an Organized Health Care Education/Training Program
DX: Z12.31 Encounter for screening mammogram for malignant neoplasm of breast (principal)
CPT/HCPCS: 77063; 77067

== ENCOUNTER → 2020-08-21 14:56 | Outpatient (CLI) | payer MEDICARE, BC, SELFPAY ==
--- NOTE | 2020-08-21 15:04 | BD_ITS ---
STUDY: DUAL ENERGY X-RAY ABSORPTIOMETRY / DXA REASON FOR EXAM: Female, 70 years old. RIPSAWYER- SURGICAL EARLY AT 42 YRS OLD -- HX OF HRT FOR 5 YRS IN PAST -- HX OF TAKING FOSAMAX IN PAST FOR 1 YR -- DOES MODERATE AMOUNT OF EXERCISE -- FAMILY HX OF OSTEO- MOTHER -- HX OF R ANKLE FX, R FOOT FX, L FOOT FX -- WOODY OF 1.5 INCHES TECHNIQUE: Bone Mineral Density (BMD) measurements of lumbar spine and bilateral hips were obtained. COMPARISON: None. FINDINGS: Lumbar Spine (L1-L4): g/cm2 (1.090) / T-score (-0.6) / Z-score (1.0) Findings are suggestive of normal bone density with a low fracture risk. Left Femur Total: g/cm2 (0.858) / T-score (-1.2) / Z-score (0.3) Left Femoral Neck: g/cm2 (0.782) / T-score (-1.8) / Z-score (-0.1) Right Femur Total: g/cm2 (0.858) / T-score (-1.2) / Z-score (0.3) Right Femoral Neck: g/cm2 (0.804) / T-score (-1.7) / Z-score (0.0) BD/Dexa Bone Density Study IMPRESSION: The patient is considered osteopenic as outlined below according to World Florent[place] Organization (WHO) criteria with a moderate fracture risk. Reference Information: The T-score is the number of standard deviations above or below the standard which is normal for young adults at their peak bone mineral density. The World Health Organization (WHO) interprets the T-scores as follows: Above -1 Normal bone density Between -1 and -2.5 Osteopenia Equal to / or below -2.5 Osteoporosis As a practical clinical guideline, osteopenia may be graded as follows: Mild -1 through -1.5 Moderate -1.6 through -2.0 Severe -2.1 through -2.4 The Z-score is the number of standard deviations above or below age-matched controls. A Z-score of less than -1.5 would be considered abnormal. References: 1. NIH Osteoporosis and Related Bone Diseases www osteo.org 2. International Society for Clinical Densitometry www iscd.org 3. National Osteoporosis Foundation www nof.org Electronically Signed: Jesse Quezada, at 14:07 EST , Service support ,
== END ==
PROVIDERS: PCP Family Medicine; Referring Provider Student in an Organized Health Care Education/Training Program; Visit Provider Student in an Organized Health Care Education/Training Program
DX: M81.0 Age-related osteoporosis without current pathological fracture (principal); Z13.820 Encounter for screening for osteoporosis
CPT/HCPCS: 77080

== ENCOUNTER 2020-11-12 09:10 | Outpatient (RCR) | payer MEDICARE, BC, SELFPAY | END 2020-11-12 23:59 | LOC: IMMUN 09:10 | PROVIDERS: PCP Family Medicine; Referring Provider Family Medicine; Visit Provider Family Medicine | DX: Z23 Encounter for immunization (principal) | CPT/HCPCS: 0011A; 0012A ==

== ENCOUNTER → 2021-07-27 10:29 | Outpatient (CLI) | payer MEDICARE, BC, SELFPAY ==
--- NOTE | 2021-07-27 10:33 | BI_ITS ---
MAMMOGRAPHY - BILATERAL SCREENING REASON FOR EXAM: Female, 71 years old. Routine annual screening examination. PERTINENT HISTORY: Non-contributory. There are multiple right excisional breast biopsy and left breast biopsy. History of prior bilateral breast reduction surgery. TECHNIQUE: Digital bilateral breast kj (3D mammographic acquisition) in the CC and MLO projections. 2-D mediolateral oblique (MLO) and craniocaudad (CC) views of both breasts were obtained. CAD: Full Field Digital Mammography with Computer Added Detection was performed. COMPARISON: Comparison is made with prior study dated 07/19/2020 and 07/01/2019. FINDINGS: Breast Composition: The breasts are heterogeneously dense, which may obscure small masses. There are no dominant masses or suspicious calcifications. No other significant abnormalities are identified. There has been no significant change since the prior study. BI/SCRN MAMM (CAD)W/KJ BILAT IMPRESSION: Stable bilateral screening mammogram. Yearly follow-up mammogram recommended. (A) ASSESSMENT CATEGORY: BIRADS Category 1: Negative. A letter regarding these results will be sent to the patient by the facility within 30 days. Approximately 10% of breast cancers are not detected by mammography. A normal mammogram should not delay biopsy of a clinically suspicious abnormality. [id number] Electronically Signed: Jesse Quezada MD at 8:52 EST , Service support ,
== END ==
PROVIDERS: PCP Family Medicine; Visit Provider Student in an Organized Health Care Education/Training Program
DX: Z12.31 Encounter for screening mammogram for malignant neoplasm of breast (principal)
CPT/HCPCS: 77063; 77067